=== PATIENT | male | born 1965 | race Caucasian/White ===

== ENCOUNTER 2021-07-16 08:56 | Inpatient (IN) | payer MEDICARE, OTHER ==
[~2021-07-16] VITALS: Ht 175.3 cm; Wt 81.6 kg
[2021-07-16] VITALS (43 sets, daily range): BP systolic 113–161; BP diastolic 64–81
[2021-07-16] MEDS: PHENYLEPHRINE INJ 40 MG in SODIUM CHL 0.9% 246 ML IV SCH (01:38)
[2021-07-16] MEDS ORDERED: EPINEPHrine HCL 250 ML IV ONE (09:06)
[2021-07-16] MEDS ORDERED: MIDAZOLAM DRIP 50 mg/50mL 50 ML IV ONE (09:06)
[2021-07-16] MEDS: EPINEPHrine HCL 250 ML IV SCH (09:11)
[2021-07-16] MEDS: MIDAZOLAM DRIP 50 mg/50mL 50 ML IV SCH ×2 (09:13→22:00)
[2021-07-16] MEDS ORDERED: SODIUM BICARBONATE 8.4 % INJ 50ML VIAL IV ONE (09:24)
[2021-07-16] MEDS: DOPamine 1600MCG/ML D5W 250 ML IV SCH (09:26)
[2021-07-16] MEDS ORDERED: PIPERACILLIN-TAZOB 3.375GM 100 ML IV ONE (09:45)
[2021-07-16 10:01] LABS: Hematocrit 34.1 % (41.0-53.0); Hemoglobin 10.8 g/dL (13.5-17.5); Mean Corpuscular Hgb Conc. 31.7 g/dL (32.0-36.0); Mean Corpuscular Volume 94.4 fL (80.0-100.0); Red Blood Cells 3.61 10^6/uL (4.5-5.90); White Blood Cell 11.8 10^3/uL (4.4-10.8)
[2021-07-16 10:20] LABS: Basophils % (manual) 0 (0.0-2.0); Blast Cells 0; Promyelocytes % 0; Reactive Lymphocytes 0
[2021-07-16 10:25] LABS: Lactic Acid w/Reflex 13.8 mmol/L (0.4-2.0)
[2021-07-16 10:27] LABS: Albumin 2.8 g/dL (3.4-5.0); Calcium 11.5 mg/dL (8.5-10.1); Magnesium 3.5 mg/dL (1.6-2.6); Potassium 4.3 mmol/L (3.5-5.1)
[2021-07-16 10:31] LABS: BUN/Creatinine Ratio 8.6; Bilirubin, Total 0.7 mg/dL (0.2-1.0); Total Protein 6.7 g/dL (6.4-8.2)
[2021-07-16 10:37] LABS: Band Neutrophils % (manual) 4; Eosinophils % (manual) 1 (0-7); Lymphocytes % (manual) 14 (10.0-50.0); Metamyelocytes % 1; Monocytes % (manual) 7 (0-12); Myelocytes % 1
[2021-07-16] MEDS ORDERED: NITROGLYCERIN 0.4 MG SL TAB SL PRN (13:00)
[2021-07-16] MEDS ORDERED: MORPHINE SULFATE INJECTION 2 MG/ML SYRG IV PRN ×2 (13:00→14:30)
[2021-07-16 13:58] LABS: Lactic Acid w/Reflex 4.7 mmol/L (0.4-2.0)
[2021-07-16] MEDS ORDERED: PANTOPRAZOLE 40 MG/10 ML VIAL INJ IV ONE (14:15)
[2021-07-16] MEDS ORDERED: BUMETANIDE 2.5mg/10ml (0.25 mg/ml) INJ IV ONE (14:30)
[2021-07-16] MEDS ORDERED: ENOXAPARIN SOD 80 MG/0.8ML SYRINGE SC ONE (14:30)
[2021-07-16] MEDS ORDERED: LORazepam 0.5 MG TAB PO PRN (14:30)
[2021-07-16] MEDS ORDERED: LACTULOSE 20Gm/30ML SOLN PO PRN (14:30)
[2021-07-16] MEDS ORDERED: HYDROcodone-ACET 5/325MG TAB PO PRN (14:30)
[2021-07-16] MEDS ORDERED: DOCUSATE SOD 100 MG CAP PO PRN (14:30)
[2021-07-16] MEDS ORDERED: HYDROcodone-ACET 5/325MG TAB PO ONE (14:30)
[2021-07-16] MEDS ORDERED: hydrALAZINE HCL 20 MG/ML VL IV PRN (14:30)
[2021-07-16] MEDS ORDERED: ONDANSETRON HCL 4 MG/2 ML VIAL IV PRN (14:30)
[2021-07-16] MEDS ORDERED: B-COMPLEX W/ C & FOLIC ACID(NEPHROVITE TAB) PO ONE (14:30)
[2021-07-16 14:57] LABS: Magnesium 2.8 mg/dL (1.6-2.6); Phosphorus 8.2 mg/dL (2.5-4.90)
[2021-07-16] MEDS: PROPOFOL 100 ML IV SCH (15:30)
[2021-07-16] MEDS: fentaNYL Drip 2500mCg/250mlNS 250 ML IV SCH (15:30)
[2021-07-16 17:28] LABS: INR 1.64 (0.9-1.15); Partial Thromboplastin Time 33.9 sec (23.6-33.0)
[2021-07-16] MEDS ORDERED: IPRATROPIUM BROM 0.5 MG/2.5ML INH SOL NEB SCH (18:00)
[2021-07-16] MEDS: BUMETANIDE 2.5mg/10ml (0.25 mg/ml) INJ IV SCH (18:00)
[2021-07-16] MEDS: ACCU-CHEK COMFORT CURVE STRIP VI SCH (18:01)
[2021-07-16] MEDS: InsuLIN REG 1unit/0.01ml Soln (100units/ml) SC SCH (18:01)
[2021-07-16] MEDS ORDERED: ACETYLCYSTEINE 10 %(100MG/ML) SOL 4ML NEB SCH (22:00)
[2021-07-16] MEDS: ATORVASTATIN 20 MG TAB PO SCH (22:00)
[2021-07-16] MEDS ORDERED: PIPERACILLIN-TAZOB 2.25GM 50 ML IV SCH (22:00)
[2021-07-16 22:04] LABS: Urine Bacteria FEW /hpf (None Seen); Urine Blood 1+ /uL (Negative); Urine Mucus FEW (None Seen); Urine WBC 14 /hpf (0 - 3)
[2021-07-16 22:16] LABS: Amphetamine Screen, Urine POSITIVE (NEGATIVE); Barbiturate Scree,Urine NEGATIVE (NEGATIVE); Benzodiazephine Screen, Urine NEGATIVE (NEGATIVE); Cannabinoid Screen, Urine NEGATIVE (NEGATIVE); Cocaine Screen, Urine NEGATIVE (NEGATIVE); Opiate Scree,Urine POSITIVE (NEGATIVE); Phencyclidine Screen, Urine NEGATIVE (NEGATIVE)
[2021-07-17] VITALS (98 sets, daily range): BP systolic 63–164; BP diastolic 35–107
[2021-07-17] MEDS: InsuLIN REG 1unit/0.01ml Soln (100units/ml) SC SCH ×2 (00:22→05:50)
[2021-07-17] MEDS: ACCU-CHEK COMFORT CURVE STRIP VI SCH ×16 (00:23→23:04)
[2021-07-17] MEDS: DOPamine 1600MCG/ML D5W 250 ML IV SCH ×2 (00:34→14:29)
[2021-07-17] MEDS: EPINEPHrine HCL 250 ML IV SCH (00:35)
[2021-07-17] MEDS: MIDAZOLAM DRIP 50 mg/50mL 50 ML IV SCH ×2 (03:29→06:46)
[2021-07-17 04:12] LABS: Basophils # (auto) 0.1 10 ^3/uL (0-0.2); Basophils % (auto) 0.5 % (0.0-2.0); Eosinophils # (auto) 0 10 ^3/uL (0-0.8); Eosinophils % (auto) 0.1 % (0.0-7.0); Hematocrit 38.3 % (41.0-53.0); Hemoglobin 12.4 g/dL (13.5-17.5); Lymphocytes # (auto) 0.8 10 ^3/uL (0.4-5.4); Lymphocytes % (auto) 3.6 % (10.0-50.0); Mean Corpuscular Hemoglobin 29.6 pg (28.0-32.0); Mean Corpuscular Hgb Conc. 32.5 g/dL (32.0-36.0); Monocytes # (auto) 1.4 10 ^3/uL (0-1.3); Monocytes % (auto) 6.8 % (0.0-12.0); Neutrophils # (auto) 18.4 10 ^3/uL (1.6-8.6); Nucleated Red Blood Cells % 0.2 %; Red Blood Cells 4.21 10^6/uL (4.5-5.90); Red Cell Distribution Width 15.8 % (11.8-14.3); White Blood Cell 20.6 10^3/uL (4.4-10.8)
[2021-07-17] MEDS ORDERED: VANCOMYCIN PER PHARMACY 0 MG IV SCH (04:15)
[2021-07-17 04:33] LABS: INR 1.45 (0.9-1.15); Partial Thromboplastin Time 31.6 sec (23.6-33.0)
[2021-07-17 04:38] LABS: Thyroid Stimulating Hormone 0.73 uIU/mL (0.358-3.74)
[2021-07-17 04:43] LABS: Magnesium 2.6 mg/dL (1.6-2.6)
[2021-07-17] MEDS ORDERED: VANCOMYCIN 1GM/250ML 250 ML IV ONE (04:45)
[2021-07-17 04:51] LABS: CRP High Sensitivity 12.9 mg/dL (< 0.3); Phosphorus 8.2 mg/dL (2.5-4.90)
[2021-07-17] MEDS: DEXTROSE (50%) 50ML SYRG IV PRN ×4 (05:48→12:11)
[2021-07-17] MEDS: BUMETANIDE 2.5mg/10ml (0.25 mg/ml) INJ IV SCH ×2 (05:55→17:56)
[2021-07-17] MEDS: LEVOTHYROXINE SODIUM 25 MCG TAB PO SCH (06:54)
[2021-07-17] MEDS ORDERED: SODIUM CHL 0.9% 1000 ML BAG XX ONE (07:30)
[2021-07-17] MEDS: ALBUMIN 25% 100 ML IV SCH ×2 (08:00→09:00)
[2021-07-17 08:53] LABS: Albumin 2.7 g/dL (3.4-5.0); Calcium 9.1 mg/dL (8.5-10.1); Potassium 4.6 mmol/L (3.5-5.1)
[2021-07-17 08:57] LABS: BUN/Creatinine Ratio 11.3; Bilirubin, Total 1.2 mg/dL (0.2-1.0); Total Protein 6.3 g/dL (6.4-8.2)
[2021-07-17] MEDS: PHENYLEPHRINE INJ 40 MG in SODIUM CHL 0.9% 246 ML IV SCH (09:30)
[2021-07-17] MEDS ORDERED: DEXTROSE (50%) 50ML SYRG IV PRN (10:00)
[2021-07-17] MEDS ORDERED: ENOXAPARIN SOD 80 MG/0.8ML SYRINGE SC SCH ×2 (10:00→22:00)
[2021-07-17] MEDS: DEXTROSE 10% 1,000 ML IV SCH ×2 (10:02→21:06)
[2021-07-17] MEDS: PANTOPRAZOLE 40 MG/10 ML VIAL INJ IV SCH (10:25)
[2021-07-17] MEDS: ASPirin 81 mg TAB PO SCH (10:26)
[2021-07-17] MEDS: B-COMPLEX W/ C & FOLIC ACID(NEPHROVITE TAB) PO SCH (10:26)
[2021-07-17] MEDS: NOREPINEPHRINE BITARTRATE 16 MG in SODIUM CHL 0.9% 234 ML IV SCH (12:15)
[2021-07-17] MEDS ORDERED: PIPERACILLIN-TAZOB 2.25GM 50 ML IV SCH (14:00)
[2021-07-17] MEDS: PROPOFOL 100 ML IV SCH (15:30)
[2021-07-17 15:32] LABS: BUN/Creatinine Ratio 11.3; Potassium 4.6 mmol/L (3.5-5.1)
[2021-07-17] MEDS: fentaNYL Drip 2500mCg/250mlNS 250 ML IV SCH (15:35)
[2021-07-17] MEDS: PIPERACILLIN-TAZOB 2.25GM 50 ML IV SCH (17:56)
[2021-07-17 19:24] LABS: BUN/Creatinine Ratio 11.7; Calcium 8.8 mg/dL (8.5-10.1); Potassium 4.1 mmol/L (3.5-5.1)
[2021-07-17] MEDS: ATORVASTATIN 20 MG TAB PO SCH (22:26)
[2021-07-17 22:39] LABS: BUN/Creatinine Ratio 11.1; Calcium 8.7 mg/dL (8.5-10.1); Potassium 4.6 mmol/L (3.5-5.1)
[2021-07-18] VITALS (98 sets, daily range): BP systolic 75–151; BP diastolic 47–87
[2021-07-18] MEDS: ACCU-CHEK COMFORT CURVE STRIP VI SCH ×15 (00:02→20:19)
[2021-07-18] MEDS: PHENYLEPHRINE INJ 40 MG in SODIUM CHL 0.9% 246 ML IV SCH ×2 (00:35→17:15)
[2021-07-18] MEDS: PIPERACILLIN-TAZOB 2.25GM 50 ML IV SCH ×3 (01:51→18:08)
[2021-07-18 02:28] LABS: BUN/Creatinine Ratio 11.3; Calcium 8.5 mg/dL (8.5-10.1); Potassium 4.2 mmol/L (3.5-5.1)
[2021-07-18] MEDS: MIDAZOLAM DRIP 50 mg/50mL 50 ML IV SCH (05:22)
[2021-07-18] MEDS: BUMETANIDE 2.5mg/10ml (0.25 mg/ml) INJ IV SCH ×2 (05:41→18:08)
[2021-07-18] MEDS: DEXTROSE 10% 1,000 ML IV SCH (06:00)
[2021-07-18] MEDS: LEVOTHYROXINE SODIUM 25 MCG TAB PO SCH (06:44)
[2021-07-18 07:25] LABS: Potassium 4.6 mmol/L (3.5-5.1)
[2021-07-18 07:26] LABS: BUN/Creatinine Ratio 11.8
[2021-07-18 09:07] LABS: Basophils # (auto) 0.1 10 ^3/uL (0-0.2); Basophils % (auto) 0.9 % (0.0-2.0); Eosinophils # (auto) 0.1 10 ^3/uL (0-0.8); Eosinophils % (auto) 0.5 % (0.0-7.0); Hematocrit 33.6 % (41.0-53.0); Hemoglobin 11.3 g/dL (13.5-17.5); Lymphocytes # (auto) 0.7 10 ^3/uL (0.4-5.4); Lymphocytes % (auto) 5.1 % (10.0-50.0); Mean Corpuscular Hgb Conc. 33.6 g/dL (32.0-36.0); Mean Corpuscular Volume 89.4 fL (80.0-100.0); Monocytes # (auto) 0.9 10 ^3/uL (0-1.3); Monocytes % (auto) 6.6 % (0.0-12.0); Neutrophils # (auto) 11.6 10 ^3/uL (1.6-8.6); Neutrophils % (auto) 86.9 % (37.0-80.0); Nucleated Red Blood Cells % 0.3 %; Red Blood Cells 3.76 10^6/uL (4.5-5.90); Red Cell Distribution Width 16.3 % (11.8-14.3); White Blood Cell 13.3 10^3/uL (4.4-10.8)
[2021-07-18] MEDS: NOREPINEPHRINE BITARTRATE 16 MG in SODIUM CHL 0.9% 234 ML IV SCH (10:45)
[2021-07-18] MEDS: ASPirin 81 mg TAB PO SCH (10:57)
[2021-07-18] MEDS: B-COMPLEX W/ C & FOLIC ACID(NEPHROVITE TAB) PO SCH (10:58)
[2021-07-18] MEDS: PANTOPRAZOLE 40 MG/10 ML VIAL INJ IV SCH (10:58)
[2021-07-18] MEDS: ENOXAPARIN SOD 80 MG/0.8ML SYRINGE SC SCH (10:59)
[2021-07-18] MEDS ORDERED: DEXTROSE 10% 1,000 ML IV SCH (11:15)
[2021-07-18] MEDS: PROPOFOL 100 ML IV SCH (15:30)
[2021-07-18] MEDS: fentaNYL Drip 2500mCg/250mlNS 250 ML IV SCH (15:30)
[2021-07-18] MEDS ORDERED: VANCOMYCIN 1GM/250ML 250 ML IV ONE (16:00)
[2021-07-18] MEDS: ATORVASTATIN 20 MG TAB PO SCH (21:39)
[2021-07-19] VITALS (47 sets, daily range): BP systolic 92–123; BP diastolic 59–79
[2021-07-19] MEDS: PIPERACILLIN-TAZOB 2.25GM 50 ML IV SCH ×2 (01:57→10:02)
[2021-07-19] MEDS: NOREPINEPHRINE BITARTRATE 16 MG in SODIUM CHL 0.9% 234 ML IV SCH (03:49)
[2021-07-19] MEDS: ACCU-CHEK COMFORT CURVE STRIP VI SCH ×3 (04:13→07:57)
[2021-07-19] MEDS: BUMETANIDE 2.5mg/10ml (0.25 mg/ml) INJ IV SCH (05:42)
[2021-07-19] MEDS: LEVOTHYROXINE SODIUM 25 MCG TAB PO SCH (06:32)
[2021-07-19] MEDS: PANTOPRAZOLE 40 MG/10 ML VIAL INJ IV SCH (10:02)
[2021-07-19] MEDS: ASPirin 81 mg TAB PO SCH (10:02)
[2021-07-19] MEDS: B-COMPLEX W/ C & FOLIC ACID(NEPHROVITE TAB) PO SCH (10:02)
[2021-07-19] MEDS: ENOXAPARIN SOD 80 MG/0.8ML SYRINGE SC SCH (10:03)
[2021-07-19] MEDS ORDERED: MORPHINE SULFATE INJECTION 2 MG/ML SYRG IV PRN (10:45)
[2021-07-19] MEDS ORDERED: LORazepam 2MG/ML-1ML VIAL IV PRN (10:45)
[2021-07-19] MEDS ORDERED: LORazepam 2MG/ML-1ML VIAL ONE (10:45)
== END 2021-07-19 15:06 | DRG 871 ==
LOC: EDBD 08:56 → ER 08:56 → TELE 12:47 → ICU WEST 14:38
PROVIDERS: ADMIT Hospitalist; ATTEND Internal Medicine Pulmonary Disease
PROC: 5A1945Z Respiratory Ventilation, 24-96 Consecutive Hours (ICD-10-PCS; principal; 2021-07-16)
PROC: 0BH17EZ Insertion of Endotracheal Airway into Trachea, Via Natural or Artificial Opening (ICD-10-PCS; 2021-07-16)
PROC: 06HY33Z Insertion of Infusion Device into Lower Vein, Percutaneous Approach (ICD-10-PCS; 2021-07-16)
DX: A41.9 Sepsis, unspecified organism (principal); I21.4 Non-ST elevation (NSTEMI) myocardial infarction; J96.01 Acute respiratory failure with hypoxia; J12.9 Viral pneumonia, unspecified; K72.00 Acute and subacute hepatic failure without coma; R65.21 Severe sepsis with septic shock; G93.41 Metabolic encephalopathy; N18.6 End stage renal disease; J96.02 Acute respiratory failure with hypercapnia; I50.33 Acute on chronic diastolic (congestive) heart failure; T82.898A Other specified complication of vascular prosthetic devices, implants and grafts, initial encounter; T82.590A Other mechanical complication of surgically created arteriovenous fistula, initial encounter; G93.1 Anoxic brain damage, not elsewhere classified; I31.3 Pericardial effusion (noninflammatory); E87.1 Hypo-osmolality and hyponatremia; I13.2 Hypertensive heart and chronic kidney disease with heart failure and with stage 5 chronic kidney disease, or end stage renal disease; J91.8 Pleural effusion in other conditions classified elsewhere; Z66 Do not resuscitate; Z20.822 Contact with and (suspected) exposure to COVID-19; I46.9 Cardiac arrest, cause unspecified; E03.9 Hypothyroidism, unspecified; E66.9 Obesity, unspecified; E78.5 Hyperlipidemia, unspecified; E83.59 Other disorders of calcium metabolism; E88.09 Other disorders of plasma-protein metabolism, not elsewhere classified; F15.90 Other stimulant use, unspecified, uncomplicated; M19.90 Unspecified osteoarthritis, unspecified site; M48.10 Ankylosing hyperostosis [Forestier], site unspecified; D63.1 Anemia in chronic kidney disease; Z99.2 Dependence on renal dialysis; E11.22 Type 2 diabetes mellitus with diabetic chronic kidney disease; E11.649 Type 2 diabetes mellitus with hypoglycemia without coma; Y83.8 Other surgical procedures as the cause of abnormal reaction of the patient, or of later complication, without mention of misadventure at the time of the procedure; Y92.89 Other specified places as the place of occurrence of the external cause; Z68.26 Body mass index [BMI] 26.0-26.9, adult; Z79.84 Long term (current) use of oral hypoglycemic drugs
CPT/HCPCS: 31500; 36415; 36556; 36600; 70450; 71045; 71250; 74176; 76604; 80048; 80053; 80061; 80202; 80307; 81001; 82550; 82728; 82805; 82962; 83036; 83605; 83615; 83690; 83735; 83880; 83970; 84100; 84443; 84484; 85007; 85025; 85027; 85379; 85610; 85652; 85730; 86141; 87040; 87070; 87076; 87077; 87081; 87086; 87186; 87205; 93005; 93306; 93970; 94003; 96365; 96375; 99291; A4618; C9113; G0378; J0171; J2250; J2543